=== PATIENT | female | born 1980 | race Caucasian/White ===

== ENCOUNTER 2018-02-04 19:32 | Emergency (ER) | payer SELFPAY ==
[~2018-02-04] VITALS: Ht 162.6 cm; Wt 78.0 kg
[2018-02-04] MEDS ORDERED: DIPHENHYDRAMINE 50 MG/ML, 1ML ONE (20:24)
[2018-02-04] MEDS ORDERED: PROCHLORPERAZINE 5 MG/ML, 2ML ONE (20:24)
[2018-02-04] MEDS ORDERED: SODIUM CHLORIDE FLUSH 10ML SYR IVF ONE (20:30)
[2018-02-04] MEDS ORDERED: DIPHENHYDRAMINE 50 MG/ML, 1ML IVPush ONE (20:30)
[2018-02-04] MEDS ORDERED: PROCHLORPERAZINE 5 MG/ML, 2ML IVPush ONE (20:30)
[2018-02-04] MEDS ORDERED: SODIUM CHLORIDE 0.9% 1,000ML IVBOLUS ONE (20:30)
[2018-02-04 20:34] LABS: BASOPHILS # (AUTO) 0.01 x10^3/uL (0-0.1); BASOPHILS % (AUTO) 0 % (0-1); EOSINOPHILS # (AUTO) 0.06 x10^3/uL (0-0.4); EOSINOPHILS % (AUTO) 0 % (1-7); LYMPHOCYTES # (AUTO) 1.52 x10^3/uL (1-3.4); LYMPHOCYTES % (AUTO) 10 % (22-44); MD NO; MEAN CORPUSCULAR HGB CONC 33.9 g/dL (32.4-35.8); MEAN CORPUSCULAR VOLUME 88.6 fL (80-100); MEAN PLATELET VOLUME 8.6 fL (7.4-10.4); MONOCYTES # (AUTO) 0.41 x10^3/uL (0.2-0.8); MONOCYTES % (AUTO) 3 % (2-9); NEUTROPHILS # (AUTO) 13.65 x10^3/uL (1.8-6.8); NEUTROPHILS % (AUTO) 87 % (42-75); PLATELET COUNT 330 x10^3/uL (130-400); RED BLOOD COUNT 4.83 x10^6/uL (3.82-5.3); RED CELL DISTRIBUTION WIDTH 13.2 % (9.6-15.2)
[2018-02-04 20:44] LABS: ALANINE AMINOTRANSFERASE 20 U/L (12-78); ALBUMIN 4.2 g/dL (3.4-5.0); ANION GAP 8 mmol/L (5-15); CALCIUM 9.7 mg/dL (8.5-10.1); CHLORIDE 109 mmol/L (98-107); CREATININE 0.89 mg/dL (0.55-1.02)
[2018-02-04 20:48] LABS: ALKALINE PHOSPHATASE 90 U/L (45-117); BILIRUBIN,TOTAL 0.5 mg/dL (0.2-1.0); TOTAL PROTEIN 8.2 g/dL (6.4-8.2)
[2018-02-04] MEDS ORDERED: ONDANSETRON ODT 4 MG ONE (22:11)
[2018-02-04] MEDS ORDERED: ONDANSETRON 2MG/ML, 2ML IVPush ONE ×2 (22:30→23:00)
[2018-02-04] MEDS ORDERED: ONDANSETRON ODT 4 MG PO ONE (23:00)
[2018-02-04 23:12] VITALS: BP 117/68
== END 2018-02-04 23:26 | disposition home or self-care (01) ==
LOC: ED 23:20
DX: R10.84 Generalized abdominal pain (principal); G43.909 Migraine, unspecified, not intractable, without status migrainosus
CPT/HCPCS: 36415; 80053; 83690; 84703; 85025; 96361; 96374; 96375; 99284; J0780; J1200; J7030; Q0162

== ENCOUNTER 2019-10-25 08:23 | Emergency (ER) | payer SELFPAY ==
[~2019-10-25] VITALS: Ht 162.6 cm; Wt 76.5 kg
--- NOTE | 2019-10-25 09:30 | NUR ---
YARN TESTER: PT AMBULATORY WITH STEADY GAIT TO ROOM AT THIS TIME. AIDA
--- NOTE | 2019-10-25 09:30 | NUR ---
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
--- NOTE | 2019-10-25 09:45 | NUR ---
TASK RN: PT TO ROOM FROM [facility], INSTRUCTED TO CHANGE INTO GOWN. PT CURRELED UP ON JOSE L WEARING ALL OF HER CLOTHES AND STATED THAT SHE DID NOT FEEL COMFORTABLE PUTTING THE GOWN ON BECUASE "EVERYTIME I COME IN HERE I GET COLD. I INSTRUCTED THE PT THAT IF SHE IS HERE FOR N/V THEN I NEED HER TO CHANGE INTO A GOWN I TOLD THE PT I WOULD [id number] WARM BLANKETS WELL THE SUNNY PAW WARMER. PT CHANGED INTO GOWN. WARM BLANKET, SUNNY PAW GOWN AND WARMER SET UP AND CONNECTED AND PT GIVEN INST ON USE. BP AND SP02 MONITORS IN PLACE. DR. FLANAGAN AT BEDSIDE. ASSESSMENT REV. AND ORDERS PENDING. CALL LIGHT W/I REACH.
[2019-10-25 09:57] LABS: BASOPHILS # (AUTO) 0.02 x10^3/uL (0-0.1); BASOPHILS % (AUTO) 0 % (0-1); EOSINOPHILS % (AUTO) 0 % (1-7); LYMPHOCYTES # (AUTO) 1.04 x10^3/uL (1-3.4); LYMPHOCYTES % (AUTO) 24 % (22-44); MD NO; MEAN CORPUSCULAR HEMOGLOBIN 30.6 pg (27.0-34.8); MEAN CORPUSCULAR HGB CONC 34.6 g/dL (32.4-35.8); MEAN CORPUSCULAR VOLUME 88.4 fL (80-100); MEAN PLATELET VOLUME 8.5 fL (7.4-10.4); MONOCYTES # (AUTO) 0.44 x10^3/uL (0.2-0.8); MONOCYTES % (AUTO) 10 % (2-9); NEUTROPHILS # (AUTO) 2.82 x10^3/uL (1.8-6.8); NEUTROPHILS % (AUTO) 65 % (42-75); PLATELET COUNT 174 x10^3/uL (130-400); RED BLOOD COUNT 4.94 x10^6/uL (3.82-5.3); RED CELL DISTRIBUTION WIDTH 12.9 % (9.6-15.2)
[2019-10-25] MEDS ORDERED: HALOPERIDOL 5 MG/ML IM PRN (09:59)
[2019-10-25] MEDS ORDERED: FAMOTIDINE 20 MG/2 ML IV ONE (10:00)
[2019-10-25] MEDS ORDERED: ONDANSETRON 2MG/ML, 2ML IVPush ONE (10:00)
[2019-10-25] MEDS ORDERED: DIPHENHYDRAMINE 50 MG/ML, 1ML IVPush ONE (10:00)
[2019-10-25] MEDS ORDERED: SODIUM CHLORIDE FLUSH 10ML SYR IVF ONE (10:00)
[2019-10-25] MEDS ORDERED: SODIUM CHLORIDE 0.9% 1,000ML IVBOLUS ONE (10:00)
[2019-10-25 10:07] LABS: ALBUMIN 3.9 g/dL (3.4-5.0); ANION GAP 9 mmol/L (5-15); CALCIUM 8.6 mg/dL (8.5-10.1); CHLORIDE 107 mmol/L (98-107)
[2019-10-25 10:14] LABS: ALANINE AMINOTRANSFERASE 29 U/L (12-78); ALKALINE PHOSPHATASE 99 U/L (45-117); BILIRUBIN,TOTAL 0.6 mg/dL (0.2-1.0); CREATININE 1.01 mg/dL (0.55-1.02); TOTAL PROTEIN 7.6 g/dL (6.4-8.2)
[2019-10-25] MEDS ORDERED: FAMOTIDINE 20 MG/2 ML ONE (10:46)
[2019-10-25] MEDS ORDERED: HALOPERIDOL 5 MG/ML ONE (10:46)
[2019-10-25] MEDS ORDERED: DIPHENHYDRAMINE 50 MG/ML, 1ML ONE (10:46)
--- NOTE | 2019-10-25 10:57 | NUR ---
TASK RN: SHELBI RPT TO ANEUDY
--- NOTE | 2019-10-25 11:03 | NUR ---
REPORT FROM LUZMA THOMAS. PIV EST MEDS PER MAR RESTING CALL INGRAM IN [facility] NAD.
[2019-10-25 12:07] VITALS: BP 115/67
--- NOTE | 2019-10-25 12:08 | NUR ---
FEELS BETTER AFTER IVF/MEDS WILL GO HOME.
== END 2019-10-25 12:28 ==
LOC: ED 12:16
DX: R11.10 Vomiting, unspecified (principal); R94.31 Abnormal electrocardiogram [ECG] [EKG]
CPT/HCPCS: 36415; 74021; 80053; 83690; 84703; 85025; 93005; 96361; 96372; 96374; 96375; 99285; J1200; J1630; J3490; J7030